=== PATIENT | female | born 1985 | race Caucasian/White ===

== ENCOUNTER 2022-11-04 19:57 | Emergency (ER) | payer OTHER ==
[~2022-11-04] VITALS: Ht 154.9 cm; Wt 81.6 kg
[2022-11-04 20:05] VITALS: BP 122/84
--- NOTE | 2022-11-04 20:05 | NUR ---
TO BED AMBULATORY
--- NOTE | 2022-11-04 20:24 | NUR ---
Patient resting in bed, A/Ox4, chest rise and fall symmetrical, no s/s of distress, patient on monitor.
--- NOTE | 2022-11-04 20:26 | NUR ---
Patient's left thumb irrigated with sterile water.
--- NOTE | 2022-11-04 20:30 | NUR ---
ER Physician at bedside performing procedure on patient's wound. Patient tolerating procedure well.
[2022-11-04] MEDS ORDERED: KETOROLAC 60 MG/2 ML VIAL IM ONE (20:50)
[2022-11-04] MEDS ORDERED: IBUP-2213 PO (20:57)
--- NOTE | 2022-11-04 20:59 | NUR ---
Patient declined Toradol 60mg Pain medication, stating, "Pain is now bearable. I don't want the pain medication."
[2022-11-04 21:16] VITALS: BP 118/74
== END 2022-11-04 21:18 | disposition home or self-care (01) ==
LOC: MED 19:57
DX: S61.012A Laceration without foreign body of left thumb without damage to nail, initial encounter (principal); W25.XXXA Contact with sharp glass, initial encounter; Y93.89 Activity, other specified; Y92.89 Other specified places as the place of occurrence of the external cause; Y99.8 Other external cause status
CPT/HCPCS: 12001; 90471; 90715; 99283; J1885